=== PATIENT | male | born 1995 | race Caucasian/White ===

== ENCOUNTER 2016-07-16 17:32 | Emergency (ER) | payer OTHER ==
--- NOTE | 2016-07-16 22:17 | ED CLINICAL REPORT ---
Clinical Report - Physicians/Mid Levels [facility] [address] [place] [address] 07/16/2016 17:35 Patient: SANTOSH BACA Time Seen: 17:58 Jul 16 2016. Arrived- By private vehicle. Historian- patient and father. HISTORY OF PRESENT ILLNESS Chief Complaint: ANXIOUS, DEPRESSED and SUICIDAL THOUGHTS. This started today. The patient has experienced situational problems. (situational problems with father, reports anxious/ wants to drive care into a building. Reports h/o similar over last few years, now on meds, sees pyschiatric care, and reports has a job works about 5 hours a day, however is easily frustrated at tasks at home and with family, reports has to take things slow and at his own rate.). Has been sleeping. The symptoms are described as mild. REVIEW OF SYSTEMS No headache, dizziness, chest pain, abdominal pain or vomiting. No diarrhea, cough or difficulty breathing. All systems otherwise negative, except as recorded above. PAST HISTORY Depression. Problems: Asthma. Anxiety Reaction. Mental Illness. Panic Attack. Additional Surgeries: no known surgeries. Medications: Escitalopram Oxalate Oral. BuPROPion HCl Oral. SOCIAL HISTORY Alcohol use. History of drug use: marijuana. Has social support. Has place to stay. ADDITIONAL NOTES The nursing notes have been reviewed. PHYSICAL EXAM Vital Signs: 07/16/2016 17:41 BP: 130/67. HR: 84. RR: 15. O2 saturation: 97%. Temp: 98.1 F. Pain level now: 0/10. Appearance: Alert. No acute distress. Appearance is normal. Anxious. Eyes: Pupils equal, round and reactive to light. Neck: Normal inspection. CVS: Normal heart rate and rhythm. Heart sounds normal. Respiratory: Breath sounds normal. Chest nontender. Abdomen: Soft. Skin: Normal skin color. Psych / Neuro: Mood and affect normal. Appears depressed. Insight and judgement normal. Cranial nerves normal (as tested). LABS, X-RAYS, AND EKG Laboratory Tests: CBC w Diff: (ALVARO: 07/16/2016 18:15) ( MsgRcvd 07/16/2016 18:23) Final results Test Result Flag Units (Reference) WHITE BLOOD COUNT 8.3 K/uL (4.5-11.5) RED BLOOD COUNT 5.04 M/uL (4.50-5.90) HEMOGLOBIN 14.5 gm/dL (13.5-17.5) HEMATOCRIT 43.7 % (41.0-53.0) MEAN CELL VOLUME 87 fL (80-100) MEAN CORPUSCULAR HGB 29 pg (26-34) MEAN CORPUSCULAR HGB CONC 33 g/dL (31-37) RED CELL DISTRIBUTION WIDTH 12.8 % (11.6-14.8) PLATELET COUNT 196 K/uL (150-400) NEUTROPHIL % 76.7 H % (50-75) LYMPH % 15.3 L % (25-40) MONO % 6.4 % (3-14) EOSINOPHIL % 1.3 % (0-4) BASOPHIL % 0.3 % (0-2) Urine Drug Screen: (ALVARO: 07/16/2016 19:00) ( MsgRcvd 07/16/2016 19:51) Final results Test Result Flag Units (Reference) AMPHETAMINE/METHAMPHETAMINE NEGATIVE (NEGATIVE) BARBITURATE NEGATIVE (NEGATIVE) BENZODIAZEPINE NEGATIVE (NEGATIVE) CANNABINOID NEGATIVE (NEGATIVE) COCAINE NEGATIVE (NEGATIVE) ECSTASY POSITIVE H (NEGATIVE) METHADONE NEGATIVE (NEGATIVE) OPIATE NEGATIVE (NEGATIVE) The urine drug screen is a qualitative screening test fordrug overdose and abuse. All screen results should beconsidered as presumptive.Drugs screened for are as follows:BenzodiazepinesCocaineAmphetamines/MetamphetaminesTHC (Tetrahydrocannabinol)OpiatesBarbituratesEcstasyMethadonePositive results are unconfirmed. For confirmation, notifythe lab for the specimen to be sent to the reference lab.All confirmations must be performed by a differentmethodology.The ingestion of natural herbal and plant productscontaining Ephedra/Ephedra metabolites can produce in urineone or more substances capable of cross reacting withamphetamine/methamphetamine immunoassays. These testsprovide a preliminary result only. A more specificalternative chemical method must be used to obtain aconfirmed analytical result. Salicylate Level: (ALVARO: 07/16/2016 18:15) ( MsgRcvd 07/16/2016 18:34) Final results Test Result Flag Units (Reference) SALICYLATE <2.8 L mg/dL (2.8-20) CMP: (ALVARO: 07/16/2016 18:15) ( MsgRcvd 07/16/2016 18:42) Final results Test Result Flag Units (Reference) GLUCOSE 129 H mg/dL (70-110) BUN 19 H mg/dL (7-18) CREATININE 1.0 mg/dL (0.6-1.3) Estimated GFR >60 mL/min Estimated GFR- >60 mL/min Note: Persistent reduction over 3 months in eGFR<60 mL/min/1.73 m2 defines CKD. Patients with eGFR values>=60 mL/min/1.73 m2 may also have CKD if evidence ofpersistent proteinuria. Additional information may be foundat www.kidney.org. SODIUM 145 mmol/L (136-145) POTASSIUM 3.7 mmol/L (3.5-5.1) CHLORIDE 106 mmol/L (98-107) CARBON DIOXIDE 30 mmol/L (21-32) CALCIUM 9.2 mg/dL (8.5-10.1) TOTAL PROTEIN 7.4 g/dL (6.4-8.2) ALBUMIN 4.3 g/dL (3.3-5.0) BILIRUBIN, TOTAL 0.4 mg/dL (0.0-1.0) ALKALINE PHOSPHATASE 76 U/L (46-116) AST (SGOT) 37 U/L (15-37) ALT (SGPT) 35 U/L (12-78) ACETAMINOPHEN < 2.0 L ug/mL (10-30) . PROGRESS AND PROCEDURES Course of Care: Verbally discussed contract for safety as unable to have mental health eval for another 8 hours at 2200, and thus patient agreed to go home with father, avoid driving, and have appointment for afternoon emergency with [facility]. Understands plan/ agrees with such. Denies active SI, reports such was worse in the heat of the moment. 07/16/2016 22:28 BP: 111/71. HR: 75. RR: 16. O2 saturation: 98%. Temp: 98 F. Pain level now: 0/10. Patient is stable. Patient/family counseled. Disposition: Discharged. CLINICAL IMPRESSION Suicidal ideation. Depression. INSTRUCTIONS (go home with your dad and do not drive [phone] [phone] 1PM). (Electronically signed by Gail Tyler P.A.-C 07/16/2016 23:15)
--- NOTE | 2016-07-16 22:17 | ED NURSING NOTES ---
Clinical Report - Nurses [place] [place] [address] [place] [address] 07/16/2016 17:35 Patient: SANTOSH BACA TRIAGE Triage time 1741 PM. Acuity: LEVEL 2. Chief Complaint: DEPRESSION, SUICIDAL THOUGHTS and ANXIETY. Alert. No acute distress. NING COMA SCORE: [place] Coma Scale: 15- eyes open spontaneously (4); best verbal response- oriented x 4 (5); best motor response- obeys commands (6). --17:57 Rosa Leahy R.N. 17:41 07/16/16. BP: 130/67 (regular adult cuff) taken on the left arm, via an automated monitor, while sitting. HR: 84. RR: 15 (regular). O2 saturation: 97% on room air. Temp: 98.1 F (oral). Pain level now: 0/10. --17:57 Rosa Leahy R.N. late entry - 18:50. BREATHALYZER: Breathalyzer (0). --19:58 Rosa Leahy R.N. Weight: 58.9 kg stated. Height/Length: 67 inches Per Patient. BMI: 20.4. --17:42 Rosa Leahy R.N. Medications BuPROPion HCl Oral. --17:47 Rosa Leahy R.N. Escitalopram Oxalate Oral. --17:47 Rosa Leahy R.N. Medication/allergy information source: the patient. --17:57 Rosa Leahy R.N. Allergies No Known Drug Allergy. --22:33 Rosa Leahy R.N. History Arrived by private vehicle. Historian: patient. Primary physician (Dr Roque). ( Has been treated for depression for the past 6 months, admits to having thoughts of suicide and admits to "probably doing something" as of last night, feels as if he has no point "to be alive" Pt states having an argument with dad last night, girl broke up with him, and school has been challenging. Pt states is here to get "help not sure how its going to work out" Pt states that has been running and trying to help himself to feel better. Pt dad is out in the waiting room as per pt's request.). Onset: yesterday. He has had anxiety and sleeping difficulties, including difficulty going to sleep and describes feelings of depression. Has been feeling agitated. Treatment SECURITY ESCORT: None. PAST MEDICAL HX: Anxiety. Psychiatric illness. Immunizations: up-to-date. SOCIAL HX: Alcohol use; consumes beer occasionally. History of drug use: marijuana. (1 years). No infectious disease exposure. ABUSE ASSESSMENT: No report of abuse. SELF HARM ASSESSMENT: A self harm assessment was performed. The patient answered "yes" to the question "Have you recently felt down, depressed, or hopeless?", "Have you noticed less interest or pleasure in doing things?", "Do you have thoughts of harming or killing yourself?" and "Have you ever tried to hurt yourself before today?" and "no" to the question "Are you here because you tried to hurt yourself?", "Have you recently had thoughts about harming or killing others?" and "Do you have any dangerous items in your possession?". The patient reports their behavior. In the ED the patient has made suicidal comments. He has been placed under frequent supervision with bedside precautions. He was placed in direct sight of the nurses station. Clothes and valuables were removed. FALL RISK ASSESSMENT: Fall risk assessment completed. No fall risk identified. NUTRITIONAL RISK ASSESSMENT: The nutritional risk assessment revealed no deficiencies. FUNCTIONAL ASSESSMENT: Functional assessment: no impairments noted. LEARNING NEEDS ASSESSMENT: The learning needs assessment revealed no barriers. SKIN INTEGRITY ASSESSMENT: Skin integrity risk assessment completed. No skin integrity risk identified. --17:57 Rosa Leahy R.N. PROBLEMS: Depression. Panic Attack. --17:45 Rosa Leahy R.N. Asthma. --17:52 Rosa Leahy R.N. ADDITIONAL SURGERIES: no known surgeries. Interventions ID band on patient. --17:57 Rosa Leahy R.N. PHYSICAL ASSESSMENT Ambulatory to room. ( Pt gowned, breathalyzer done, clothing and personal values locked up as per protocol. Reassurance given). GENERAL / NEURO / PSYCH: Alert. Oriented X 4. Appears in no acute distress. Speech within normal limits. Patient's mood/affect appears flat and tearful. Poor eye contact. Patient appears calm and cooperative. The patient describes intermittent suicidal thoughts and has a specific plan (with access to the planned method). Prior history of suicidal thoughts. Frequent supervision provided. Patient has been placed in a safe room and direct sight of the station. Clothes/valuables were removed and placed in the safe (yesterday). Patient appears well-nourished and neat and clean. RESPIRATORY: Respirations not labored. Breath sounds within normal limits. GI / : Abdomen soft and nontender. SKIN: Skin intact. Skin is warm and dry. Skin color is within normal limits. --18:14 Rsoa Leahy R.N. NURSING PROGRESS NOTES The initial plan of care for this patient has been created This plan of care was discussed with the patient. Suicide precautions initiated. Room made safe. Frequent one on one supervision, checks performed every 15 minutes, clothing / valuables removed and placed in the safe. Patient placed in direct sight of the nurse's station. Two patient identifiers checked. Call light placed in reach. Side rails up x 1. Bed placed in lowest position. Brakes of bed on. Brakes of chair on. --18:15 Rosa Leahy R.N. <<STRICKEN ENTRY-- Checked patient name and birthdate: patient confirmed. Blood samples drawn with syringe and 23g butterfly per protocol ; labeled in presence of the patient and sent to lab: rainbow set: cardiac enzymes (1st set). --18:35 Nelsy, Markus --END STRIKE>> wrong time --18:36 Nelsy, Markus Checked patient name and birthdate: patient confirmed. Blood samples drawn from the right antecubital space with syringe and 23g butterfly by tech per protocol ; labeled in presence of the patient and sent to lab: rainbow set: cardiac enzymes (1st set). (18:15). --18:36 Nelsy, Markus 18:50 07/16/16. Patient informed about reason for wait and about plan of care. --18:50 Martin Sellers R.N. 18:50 07/16/16. ( Pt unable to provide urine, pt educated about importance of urine specimen). --18:50 Martin Sellers R.N. 19:05 07/16/16. Patient ID band checked for patient name and birthdate. Clean catch urine collected with return of yellow-colored urine; sample sent to lab for drug screen. Specimen labeled in the presence of the patient. --19:05 Martin Sellers R.N. Reassurance given. Suicide precautions initiated. Room made safe. Frequent one on one supervision. Patient placed in direct sight of the nurse's station. The patient reports no complaints and he is calm. Overall patient status is the same- he states feels the same. GENERAL / NEURO / PSYCH: The patient reports feelings of depression. Denies anger, restlessness or headache. SKIN: Skin is warm and dry. Skin color within normal limits. Call light placed in reach. Side rails up x 1. Brakes of bed on. --19:28 Rosa Leahy R.N. 19:25 07/16/16. BP: 131/58 (regular adult cuff) taken on the left arm, while sitting. RR: 15. O2 saturation: 98% on room air. Temp: 98.2 F (oral). Pain level now: 0/10. --19:28 Rosa Leahy R.N. Reassurance given. Suicide precautions initiated. Room made safe. Frequent one on one supervision. Patient placed in direct sight of the nurse's station. The patient is calm. Overall patient status is the same- he states feels the same. GENERAL / NEURO / PSYCH: The patient reports feelings of depression. Denies restlessness. Alert. Oriented X 4. Patient appears calm and cooperative. Appears depressed and affect appears flat. Call light placed in reach. Side rails up x 1. Bed placed in lowest position. Brakes of bed on. ( PAT team called, pt made aware of team coming in approximately 3 hours from now. Pt eat 1/2 sandwich with oreos. Frequent checks in place.). --20:26 Rosa Leahy R.N. 20:29 07/16/16. BP: 108/58. HR: 71. RR: 12. O2 saturation: 98% on room air. Temp: 98.8 F (oral). Pain level now: 0/10. --20:29 Rosa Leahy R.N. 22:00 PAT community leader unable to see patient this evening. [facility] called, they are also unable to evaluate patient this evening. [facility] spoke with attending provider, patient contracted for safety with provider and agreed to a next day appointment. Patient has an appointment on July 17 @ 1pm. [facility] [address] . --22:15 McQuoid, Julieth, ER Tech1 late entry - 21:00 PM. Reassurance given. Suicide precautions initiated: a safety sweep of the room is ongoing. Room made safe. Frequent one on one supervision. Patient placed in direct sight of the nurse's station. GENERAL / NEURO / PSYCH: The patient reports feelings of depression. Denies anger or restlessness. --22:32 Rosa Leahy R.N. DISPOSITION / DISCHARGE Condition at departure: stable. The goals identified in the patient's plan of care were met. No learning barriers present. Discharge instructions provided and reviewed with the patient. Treatments reviewed. Reviewed referral to a psychiatrist for followup. Follow up contact number [phone]. Patient verbalized understanding. Written instructions provided in Arabic. No warning instructions, medication instructions, diet instructions or activity restrictions. The patient was discharged by the physician budget assistant. He was discharged home and accompanied by parent. He left the Emergency Department ambulatory and via private vehicle. Parent driving. FALL RISK ASSESSMENT: Fall risk assessment completed. No fall risk identified. --22:30 Rosa Leahy R.N. 22:28 07/16/16. BP: 111/71 (regular adult cuff) taken on the left arm, via an automated monitor, while sitting. HR: 75. RR: 16. O2 saturation: 98% on room air. Temp: 98 F (oral). Pain level now: 0/10. --22:30 Rosa Leahy R.N. Departure time: 2240 PM. Reviewed warnings (No driving). ( Pt walked out to where Dad is waiting, aware of no driving). --22:41 Rosa Leahy R.N. Locked/Released at 07/16/2016 22:42 by Rosa Leahy R.N.
--- NOTE | 2016-07-16 22:17 | ED CLINICAL REPORT ---
Clinical Report - Physicians/Mid Levels [facility] [address] [place] [address] 07/16/2016 17:35 Patient: SANTOSH BACA Time Seen: 17:58 Jul 16 2016. Arrived- By private vehicle. Historian- patient and father. HISTORY OF PRESENT ILLNESS Chief Complaint: ANXIOUS, DEPRESSED and SUICIDAL THOUGHTS. This started today. The patient has experienced situational problems. (situational problems with father, reports anxious/ wants to drive care into a building. Reports h/o similar over last few years, now on meds, sees pyschiatric care, and reports has a job works about 5 hours a day, however is easily frustrated at tasks at home and with family, reports has to take things slow and at his own rate.). Has been sleeping. The symptoms are described as mild. REVIEW OF SYSTEMS No headache, dizziness, chest pain, abdominal pain or vomiting. No diarrhea, cough or difficulty breathing. All systems otherwise negative, except as recorded above. PAST HISTORY Depression. Problems: Asthma. Anxiety Reaction. Mental Illness. Panic Attack. Additional Surgeries: no known surgeries. Medications: Escitalopram Oxalate Oral. BuPROPion HCl Oral. SOCIAL HISTORY Alcohol use. History of drug use: marijuana. Has social support. Has place to stay. ADDITIONAL NOTES The nursing notes have been reviewed. PHYSICAL EXAM Vital Signs: 07/16/2016 17:41 BP: 130/67. HR: 84. RR: 15. O2 saturation: 97%. Temp: 98.1 F. Pain level now: 0/10. Appearance: Alert. No acute distress. Appearance is normal. Anxious. Eyes: Pupils equal, round and reactive to light. Neck: Normal inspection. CVS: Normal heart rate and rhythm. Heart sounds normal. Respiratory: Breath sounds normal. Chest nontender. Abdomen: Soft. Skin: Normal skin color. Psych / Neuro: Mood and affect normal. Appears depressed. Insight and judgement normal. Cranial nerves normal (as tested). LABS, X-RAYS, AND EKG Laboratory Tests: CBC w Diff: (ALVARO: 07/16/2016 18:15) ( MsgRcvd 07/16/2016 18:23) Final results Test Result Flag Units (Reference) WHITE BLOOD COUNT 8.3 K/uL (4.5-11.5) RED BLOOD COUNT 5.04 M/uL (4.50-5.90) HEMOGLOBIN 14.5 gm/dL (13.5-17.5) HEMATOCRIT 43.7 % (41.0-53.0) MEAN CELL VOLUME 87 fL (80-100) MEAN CORPUSCULAR HGB 29 pg (26-34) MEAN CORPUSCULAR HGB CONC 33 g/dL (31-37) RED CELL DISTRIBUTION WIDTH 12.8 % (11.6-14.8) PLATELET COUNT 196 K/uL (150-400) NEUTROPHIL % 76.7 H % (50-75) LYMPH % 15.3 L % (25-40) MONO % 6.4 % (3-14) EOSINOPHIL % 1.3 % (0-4) BASOPHIL % 0.3 % (0-2) Urine Drug Screen: (ALVARO: 07/16/2016 19:00) ( MsgRcvd 07/16/2016 19:51) Final results Test Result Flag Units (Reference) AMPHETAMINE/METHAMPHETAMINE NEGATIVE (NEGATIVE) BARBITURATE NEGATIVE (NEGATIVE) BENZODIAZEPINE NEGATIVE (NEGATIVE) CANNABINOID NEGATIVE (NEGATIVE) COCAINE NEGATIVE (NEGATIVE) ECSTASY POSITIVE H (NEGATIVE) METHADONE NEGATIVE (NEGATIVE) OPIATE NEGATIVE (NEGATIVE) The urine drug screen is a qualitative screening test fordrug overdose and abuse. All screen results should beconsidered as presumptive.Drugs screened for are as follows:BenzodiazepinesCocaineAmphetamines/MetamphetaminesTHC (Tetrahydrocannabinol)OpiatesBarbituratesEcstasyMethadonePositive results are unconfirmed. For confirmation, notifythe lab for the specimen to be sent to the reference lab.All confirmations must be performed by a differentmethodology.The ingestion of natural herbal and plant productscontaining Ephedra/Ephedra metabolites can produce in urineone or more substances capable of cross reacting withamphetamine/methamphetamine immunoassays. These testsprovide a preliminary result only. A more specificalternative chemical method must be used to obtain aconfirmed analytical result. Salicylate Level: (ALVARO: 07/16/2016 18:15) ( MsgRcvd 07/16/2016 18:34) Final results Test Result Flag Units (Reference) SALICYLATE <2.8 L mg/dL (2.8-20) CMP: (ALVARO: 07/16/2016 18:15) ( MsgRcvd 07/16/2016 18:42) Final results Test Result Flag Units (Reference) GLUCOSE 129 H mg/dL (70-110) BUN 19 H mg/dL (7-18) CREATININE 1.0 mg/dL (0.6-1.3) Estimated GFR >60 mL/min Estimated GFR- >60 mL/min Note: Persistent reduction over 3 months in eGFR<60 mL/min/1.73 m2 defines CKD. Patients with eGFR values>=60 mL/min/1.73 m2 may also have CKD if evidence ofpersistent proteinuria. Additional information may be foundat www.kidney.org. SODIUM 145 mmol/L (136-145) POTASSIUM 3.7 mmol/L (3.5-5.1) CHLORIDE 106 mmol/L (98-107) CARBON DIOXIDE 30 mmol/L (21-32) CALCIUM 9.2 mg/dL (8.5-10.1) TOTAL PROTEIN 7.4 g/dL (6.4-8.2) ALBUMIN 4.3 g/dL (3.3-5.0) BILIRUBIN, TOTAL 0.4 mg/dL (0.0-1.0) ALKALINE PHOSPHATASE 76 U/L (46-116) AST (SGOT) 37 U/L (15-37) ALT (SGPT) 35 U/L (12-78) ACETAMINOPHEN < 2.0 L ug/mL (10-30) . PROGRESS AND PROCEDURES Course of Care: Verbally discussed contract for safety as unable to have mental health eval for another 8 hours at 2200, and thus patient agreed to go home with father, avoid driving, and have appointment for afternoon emergency with [facility]. Understands plan/ agrees with such. Denies active SI, reports such was worse in the heat of the moment. 07/16/2016 22:28 BP: 111/71. HR: 75. RR: 16. O2 saturation: 98%. Temp: 98 F. Pain level now: 0/10. Patient is stable. Patient/family counseled. Disposition: Discharged. CLINICAL IMPRESSION Suicidal ideation. Depression. INSTRUCTIONS (go home with your dad and do not drive [id number] [phone] 1PM). (Electronically signed by Gail Tyler P.A.-C 07/16/2016 23:15)
--- NOTE | 2016-07-16 22:17 | ED NURSING NOTES ---
Clinical Report - Nurses [place] [address] [place] [address] 07/16/2016 17:35 Patient: SANTOSH BACA TRIAGE Triage time 1741 PM. Acuity: LEVEL 2. Chief Complaint: DEPRESSION, SUICIDAL THOUGHTS and ANXIETY. Alert. No acute distress. NING COMA SCORE: [place] Coma Scale: 15- eyes open spontaneously (4); best verbal response- oriented x 4 (5); best motor response- obeys commands (6). --17:57 Rosa Leahy R.N. 17:41 07/16/16. BP: 130/67 (regular adult cuff) taken on the left arm, via an automated monitor, while sitting. HR: 84. RR: 15 (regular). O2 saturation: 97% on room air. Temp: 98.1 F (oral). Pain level now: 0/10. --17:57 Rosa Leahy R.N. late entry - 18:50. BREATHALYZER: Breathalyzer (0). --19:58 Rosa Leahy R.N. Weight: 58.9 kg stated. Height/Length: 67 inches Per Patient. BMI: 20.4. --17:42 Rosa Leahy R.N. Medications BuPROPion HCl Oral. --17:47 Rosa Leahy R.N. Escitalopram Oxalate Oral. --17:47 Rosa Leahy R.N. Medication/allergy information source: the patient. --17:57 Rosa Leahy R.N. Allergies No Known Drug Allergy. --22:33 Rosa Leahy R.N. History Arrived by private vehicle. Historian: patient. Primary physician (Dr Roque). ( Has been treated for depression for the past 6 months, admits to having thoughts of suicide and admits to "probably doing something" as of last night, feels as if he has no point "to be alive" Pt states having an argument with dad last night, girl broke up with him, and school has been challenging. Pt states is here to get "help not sure how its going to work out" Pt states that has been running and trying to help himself to feel better. Pt dad is out in the waiting room as per pt's request.). Onset: yesterday. He has had anxiety and sleeping difficulties, including difficulty going to sleep and describes feelings of depression. Has been feeling agitated. Treatment UNLOADING CHECKER: None. PAST MEDICAL HX: Anxiety. Psychiatric illness. Immunizations: up-to-date. SOCIAL HX: Alcohol use; consumes beer occasionally. History of drug use: marijuana. (1 years). No infectious disease exposure. ABUSE ASSESSMENT: No report of abuse. SELF HARM ASSESSMENT: A self harm assessment was performed. The patient answered "yes" to the question "Have you recently felt down, depressed, or hopeless?", "Have you noticed less interest or pleasure in doing things?", "Do you have thoughts of harming or killing yourself?" and "Have you ever tried to hurt yourself before today?" and "no" to the question "Are you here because you tried to hurt yourself?", "Have you recently had thoughts about harming or killing others?" and "Do you have any dangerous items in your possession?". The patient reports their behavior. In the ED the patient has made suicidal comments. He has been placed under frequent supervision with bedside precautions. He was placed in direct sight of the nurses station. Clothes and valuables were removed. FALL RISK ASSESSMENT: Fall risk assessment completed. No fall risk identified. NUTRITIONAL RISK ASSESSMENT: The nutritional risk assessment revealed no deficiencies. FUNCTIONAL ASSESSMENT: Functional assessment: no impairments noted. LEARNING NEEDS ASSESSMENT: The learning needs assessment revealed no barriers. SKIN INTEGRITY ASSESSMENT: Skin integrity risk assessment completed. No skin integrity risk identified. --17:57 Rosa Leahy R.N. PROBLEMS: Depression. Panic Attack. --17:45 Rosa Leahy R.N. Asthma. --17:52 Rosa Leahy R.N. ADDITIONAL SURGERIES: no known surgeries. Interventions ID band on patient. --17:57 Rosa Leahy R.N. PHYSICAL ASSESSMENT Ambulatory to room. ( Pt gowned, breathalyzer done, clothing and personal values locked up as per protocol. Reassurance given). GENERAL / NEURO / PSYCH: Alert. Oriented X 4. Appears in no acute distress. Speech within normal limits. Patient's mood/affect appears flat and tearful. Poor eye contact. Patient appears calm and cooperative. The patient describes intermittent suicidal thoughts and has a specific plan (with access to the planned method). Prior history of suicidal thoughts. Frequent supervision provided. Patient has been placed in a safe room and direct sight of the station. Clothes/valuables were removed and placed in the safe (yesterday). Patient appears well-nourished and neat and clean. RESPIRATORY: Respirations not labored. Breath sounds within normal limits. GI / : Abdomen soft and nontender. SKIN: Skin intact. Skin is warm and dry. Skin color is within normal limits. --18:14 Rosa Leahy R.N. NURSING PROGRESS NOTES The initial plan of care for this patient has been created This plan of care was discussed with the patient. Suicide precautions initiated. Room made safe. Frequent one on one supervision, checks performed every 15 minutes, clothing / valuables removed and placed in the safe. Patient placed in direct sight of the nurse's station. Two patient identifiers checked. Call light placed in reach. Side rails up x 1. Bed placed in lowest position. Brakes of bed on. Brakes of chair on. --18:15 Rosa Leahy R.N. <<STRICKEN ENTRY-- Checked patient name and birthdate: patient confirmed. Blood samples drawn with syringe and 23g butterfly per protocol ; labeled in presence of the patient and sent to lab: rainbow set: cardiac enzymes (1st set). --18:35 Nelsy, Markus --END STRIKE>> wrong time --18:36 Nelsy, Markus Checked patient name and birthdate: patient confirmed. Blood samples drawn from the right antecubital space with syringe and 23g butterfly by tech per protocol ; labeled in presence of the patient and sent to lab: rainbow set: cardiac enzymes (1st set). (18:15). --18:36 Nelsy, Markus 18:50 07/16/16. Patient informed about reason for wait and about plan of care. --18:50 Martin Sellers R.N. 18:50 07/16/16. ( Pt unable to provide urine, pt educated about importance of urine specimen). --18:50 Martin Sellers R.N. 19:05 07/16/16. Patient ID band checked for patient name and birthdate. Clean catch urine collected with return of yellow-colored urine; sample sent to lab for drug screen. Specimen labeled in the presence of the patient. --19:05 Martin Sellers R.N. Reassurance given. Suicide precautions initiated. Room made safe. Frequent one on one supervision. Patient placed in direct sight of the nurse's station. The patient reports no complaints and he is calm. Overall patient status is the same- he states feels the same. GENERAL / NEURO / PSYCH: The patient reports feelings of depression. Denies anger, restlessness or headache. SKIN: Skin is warm and dry. Skin color within normal limits. Call light placed in reach. Side rails up x 1. Brakes of bed on. --19:28 Rosa Leahy R.N. 19:25 07/16/16. BP: 131/58 (regular adult cuff) taken on the left arm, while sitting. RR: 15. O2 saturation: 98% on room air. Temp: 98.2 F (oral). Pain level now: 0/10. --19:28 Rosa Leahy R.N. Reassurance given. Suicide precautions initiated. Room made safe. Frequent one on one supervision. Patient placed in direct sight of the nurse's station. The patient is calm. Overall patient status is the same- he states feels the same. GENERAL / NEURO / PSYCH: The patient reports feelings of depression. Denies restlessness. Alert. Oriented X 4. Patient appears calm and cooperative. Appears depressed and affect appears flat. Call light placed in reach. Side rails up x 1. Bed placed in lowest position. Brakes of bed on. ( PAT team called, pt made aware of team coming in approximately 3 hours from now. Pt eat 1/2 sandwich with oreos. Frequent checks in place.). --20:26 Rosa Leahy R.N. 20:29 07/16/16. BP: 108/58. HR: 71. RR: 12. O2 saturation: 98% on room air. Temp: 98.8 F (oral). Pain level now: 0/10. --20:29 Rosa Leahy R.N. 22:00 PAT project leader unable to see patient this evening. [facility] called, they are also unable to evaluate patient this evening. [facility] spoke with attending provider, patient contracted for safety with provider and agreed to a next day appointment. Patient has an appointment on July 17 @ 1pm. [facility] [address] . --22:15 McQuoid, Julieth, ER Tech1 late entry - 21:00 PM. Reassurance given. Suicide precautions initiated: a safety sweep of the room is ongoing. Room made safe. Frequent one on one supervision. Patient placed in direct sight of the nurse's station. GENERAL / NEURO / PSYCH: The patient reports feelings of depression. Denies anger or restlessness. --22:32 Rosa Leahy R.N. DISPOSITION / DISCHARGE Condition at departure: stable. The goals identified in the patient's plan of care were met. No learning barriers present. Discharge instructions provided and reviewed with the patient. Treatments reviewed. Reviewed referral to a psychiatrist for followup. Follow up contact number [phone]. Patient verbalized understanding. Written instructions provided in Sinhala. No warning instructions, medication instructions, diet instructions or activity restrictions. The patient was discharged by the physician assistant inventory manager. He was discharged home and accompanied by parent. He left the Emergency Department ambulatory and via private vehicle. Parent driving. FALL RISK ASSESSMENT: Fall risk assessment completed. No fall risk identified. --22:30 Rosa Leahy R.N. 22:28 07/16/16. BP: 111/71 (regular adult cuff) taken on the left arm, via an automated monitor, while sitting. HR: 75. RR: 16. O2 saturation: 98% on room air. Temp: 98 F (oral). Pain level now: 0/10. --22:30 Rosa Leahy R.N. Departure time: 2240 PM. Reviewed warnings (No driving). ( Pt walked out to where Dad is waiting, aware of no driving). --22:41 Rosa Leahy R.N. Locked/Released at 07/16/2016 22:42 by Rosa Leahy R.N.
--- NOTE | 2016-07-16 22:17 | ED ORDER SUMMARY ---
..... Patient: SANTOSH BACA OrderSheet [facility] VisitID: [id number] [place] [address] 21y, M Registration Date/Time: 07/16/2016 ORDER SHEET Weight: 58.9 kg (stated) Allergies: No Known Drug Allergy GENERAL ORDERS: Urine Drug Screen Urgent (17:58 07/16/2016 EKoroleva P.A.-C) (Ack 18:08 LNations ER Tech1) (18:16 EHassan R.N.) CBC w Diff Urgent (17:58 07/16/2016 EKoroleva P.A.-C) (Ack 18:08 LNations ER Tech1) (18:15 EHassan R.N.) CMP Urgent (17:58 07/16/2016 EKoroleva P.A.-C) (Ack 18:08 LNations ER Tech1) (18:15 EHassan R.N.) Acetaminophen Level Urgent (17:58 07/16/2016 EKoroleva P.A.-C) (Ack 18:08 LNations ER Tech1) (18:15 EHassan R.N.) Salicylate Level Urgent (17:58 07/16/2016 EKoroleva P.A.-C) (Ack 18:08 LNations ER Tech1) (18:15 EHassan R.N.) Breathalyzer (17:58 07/16/2016 EKoroleva P.A.-C) (Ack 18:08 LNations ER Tech1) (18:15 EHassan R.N.) MEDICATION ORDERS: IV FLUIDS: ORDER SHEET NOTES: [Electronically signed by Rosa Leahy R.N. (22:42 07/16/2016)] [Electronically signed by Gail Tyler PDmitriA.-C (23:15 07/16/2016)] [Electronically locked/signed by Rosa Leahy R.N. (22:42 07/16/2016)]
--- NOTE | 2016-07-16 22:17 | ED ORDER SUMMARY ---
..... Patient: SANTOSH BACA OrderSheet [facility] VisitID: [id number] [place] [address] 21y, M Registration Date/Time: 07/16/2016 ORDER SHEET Weight: 58.9 kg (stated) Allergies: No Known Drug Allergy GENERAL ORDERS: Urine Drug Screen Urgent (17:58 07/16/2016 EKoroleva P.A.-C) (Ack 18:08 LNations ER Tech1) (18:16 EHassan R.N.) CBC w Diff Urgent (17:58 07/16/2016 EKoroleva P.A.-C) (Ack 18:08 LNations ER Tech1) (18:15 EHassan R.N.) CMP Urgent (17:58 07/16/2016 EKoroleva P.A.-C) (Ack 18:08 LNations ER Tech1) (18:15 EHassan R.N.) Acetaminophen Level Urgent (17:58 07/16/2016 EKoroleva P.A.-C) (Ack 18:08 LNations ER Tech1) (18:15 EHassan R.N.) Salicylate Level Urgent (17:58 07/16/2016 EKoroleva P.A.-C) (Ack 18:08 LNations ER Tech1) (18:15 EHassan R.N.) Breathalyzer (17:58 07/16/2016 EKoroleva P.A.-C) (Ack 18:08 LNations ER Tech1) (18:15 EHassan R.N.) MEDICATION ORDERS: IV FLUIDS: ORDER SHEET NOTES: [Electronically signed by Rosa Leahy R.N. (22:42 07/16/2016)] [Electronically signed by Gail Tyler PDmitriA.-C (23:15 07/16/2016)] [Electronically locked/signed by Rosa Leahy R.N. (22:42 07/16/2016)]
--- NOTE | 2016-07-16 23:15 | ED MAR SUMMARY ---
..... Medication Administration Record [facility] [address] [place], [place] [id number] Patient: SANTOSH BACA Visit ID: [id number] 21y, M Weight: 58.9 kg Height/Length: 67 in BMI: 20.4 ALLERGIES: No Known Drug Allergy
--- NOTE | 2016-07-16 23:15 | ED MED RECONCILIATION SUMMARY ---
Patient: SANTOSH BACA Medication Reconciliation Report [facility] VisitID: [id number] [address] [place] [address] 21y, M Registration Date/Time: 07/16/2016 Weight: 58.9 kg Height/Length: 67 in. BMI: 20.4 ALLERGIES: No Known Drug Allergy The patient's Home Medications are listed below: THE FOLLOWING MEDICATIONS NEED TO BE RECONCILED: BuPROPion HCl Oral Escitalopram Oxalate Oral The source(s) of the original Home Medication information: patient The following Medications were given to the patient in the Emergency Department: None. The following Medications were prescribed to the patient: None.
--- NOTE | 2016-07-16 23:15 | ED MED RECONCILIATION SUMMARY ---
Patient: SANTOSH BACA Medication Reconciliation Report [facility] VisitID: [id number] [address] [place] [place] [address] 21y, M Registration Date/Time: 07/16/2016 Weight: 58.9 kg Height/Length: 67 in. BMI: 20.4 ALLERGIES: No Known Drug Allergy The patient's Home Medications are listed below: THE FOLLOWING MEDICATIONS NEED TO BE RECONCILED: BuPROPion HCl Oral Escitalopram Oxalate Oral The source(s) of the original Home Medication information: patient The following Medications were given to the patient in the Emergency Department: None. The following Medications were prescribed to the patient: None.
--- NOTE | 2016-07-16 23:15 | ED MAR SUMMARY ---
..... Medication Administration Record [facility] [address] [place], [place] [id number] Patient: SANTOSH BACA Visit ID: [id number] 21y, M Weight: 58.9 kg Height/Length: 67 in BMI: 20.4 ALLERGIES: No Known Drug Allergy
--- NOTE | 2016-07-16 23:15 | ED DISCHARGE INSTRUCTIONS ---
Patient: SANTOSH BACA General Instructions [facility] VisitID: [id number] [place] [address] 21y, M Registration Date/Time: 07/16/2016 Suicidal ideation. Depression. INSTRUCTIONS (go home with your dad and do not drive [address] [phone] 1PM). ADDITIONAL INFORMATION Depression Depression is one of the most common mental health problems today. It is not just a state of unhappiness or sadness. It is a true disease. The cause seems to be related to a decrease in chemicals that transmit signals in the brain. Having a family history of depression, alcoholism or suicide increases the risk. Chronic illness, chronic pain, migraine headaches and high emotional stress also increase the risk. Depression can cause many different symptoms, such as: -- Loss of appetite -- Over-eating -- Not being able to sleep -- Sleeping too much -- Tiredness not related to physical exertion -- Restlessness or irritability -- Slowness of movement or speech -- Feeling depressed or withdrawn -- Loss of interest in things you once enjoyed -- Difficulty in concentrating, poor memory, have trouble making decisions -- Thoughts of harming or killing oneself, or thoughts that life is not worth living -- Low self-esteem The best treatment for depression is a combination of medicine and psychotherapy. Antidepressant medicines can reduce suffering and can improve the ability to function during the depressed period. Therapy can offer emotional support and help you understand emotional factors that may be causing the depression. Home Care: 1) Be kind to yourself. Make it a point to do things that you enjoy (gardening, walking in nature, going to a movie, etc.). Reward yourself for small successes. 2) Take care of your physical body. Eat a balanced diet (low in saturated fat and high in fruits and vegetables). Establish an exercise plan at least 3 times a week for 30 minutes. Even mild-moderate exercise (like brisk walking) can make you feel better. 3) Avoid alcohol, which can make depression worse. Follow-Up with your doctor as advised. It is important to keep in contact with a health care provider until your symptoms begin to improve. Get Prompt Medical Attention if any of the following occur: -- Feeling extreme depression, fear, anxiety, or anger toward yourself or others -- Feeling out of control -- Feeling that you may try to harm yourself or another -- Hearing voices that others do not hear -- Seeing things that others do not see -- Cant sleep or eat for 3 days in a row You have been given the following additional information: Depression (Electronically signed by Gail Tyler P.A.-C 07/16/2016 23:15)
--- NOTE | 2016-07-16 23:15 | ED DISCHARGE INSTRUCTIONS ---
Patient: SANTOSH BACA General Instructions [facility] VisitID: [id number] [place] [address] 21y, M Registration Date/Time: 07/16/2016 Suicidal ideation. Depression. INSTRUCTIONS (go home with your dad and do not drive [address] [phone] 1PM). ADDITIONAL INFORMATION Depression Depression is one of the most common mental health problems today. It is not just a state of unhappiness or sadness. It is a true disease. The cause seems to be related to a decrease in chemicals that transmit signals in the brain. Having a family history of depression, alcoholism or suicide increases the risk. Chronic illness, chronic pain, migraine headaches and high emotional stress also increase the risk. Depression can cause many different symptoms, such as: -- Loss of appetite -- Over-eating -- Not being able to sleep -- Sleeping too much -- Tiredness not related to physical exertion -- Restlessness or irritability -- Slowness of movement or speech -- Feeling depressed or withdrawn -- Loss of interest in things you once enjoyed -- Difficulty in concentrating, poor memory, have trouble making decisions -- Thoughts of harming or killing oneself, or thoughts that life is not worth living -- Low self-esteem The best treatment for depression is a combination of medicine and psychotherapy. Antidepressant medicines can reduce suffering and can improve the ability to function during the depressed period. Therapy can offer emotional support and help you understand emotional factors that may be causing the depression. Home Care: 1) Be kind to yourself. Make it a point to do things that you enjoy (gardening, walking in nature, going to a movie, etc.). Reward yourself for small successes. 2) Take care of your physical body. Eat a balanced diet (low in saturated fat and high in fruits and vegetables). Establish an exercise plan at least 3 times a week for 30 minutes. Even mild-moderate exercise (like brisk walking) can make you feel better. 3) Avoid alcohol, which can make depression worse. Follow-Up with your doctor as advised. It is important to keep in contact with a health care provider until your symptoms begin to improve. Get Prompt Medical Attention if any of the following occur: -- Feeling extreme depression, fear, anxiety, or anger toward yourself or others -- Feeling out of control -- Feeling that you may try to harm yourself or another -- Hearing voices that others do not hear -- Seeing things that others do not see -- Cant sleep or eat for 3 days in a row You have been given the following additional information: Depression (Electronically signed by Gail Tyler P.A.-C 07/16/2016 23:15)
== END 2016-07-16 22:40 | disposition home or self-care (01) ==
LOC: ED SRH 17:32
DX: R45.851 Suicidal ideations (principal); F32.9 Major depressive disorder, single episode, unspecified
CPT/HCPCS: 90100; 92760; 92761; 92762; 92763; 92764; 92765; 92766; 92767; 92780; 95059; 97000